=== PATIENT | male | born 1970 | race Caucasian/White ===

== ENCOUNTER 2016-09-03 14:55 | Emergency (ER) | payer SELFPAY ==
[~2016-09-03 14:55] MED LIST: CEPHALEXIN 500 MG CAP PO SCH; SULFAMETHOX/TMP 800/160 MG 1 TAB PO SCH
--- NOTE | 2016-09-03 16:33 | EDPHY ---
H & P Stated Complaint: infection to right thigh and left potter - 1 week Time Seen by Provider: 09/03/16 15:49 HPI/ROS: CHIEF COMPLAINT: multiple wounds HISTORY OF PRESENT ILLNESS: 46-year-old male presents emergency department reporting multiple wounds that he noticed on bilateral legs 2 weeks ago that have been increasing and worsening. Patient reports there is 1 on his left lower leg and 1 in his upper right lateral thigh that are becoming red and painful. Patient is homeless. He denies history of MRSA infection. He denies history of diabetes. Patient denies fevers or chills, no nausea. Tetanus is not up-to-date. He denies numbness or tingling in his extremities, no other complaints. REVIEW OF SYSTEMS: A comprehensive 10 point review of systems is otherwise negative aside from elements mentioned in the history of present illness. Source: Patient Exam Limitations: No limitations - Personal History Current Tetanus Diphtheria and Acellular Pertussis (TDAP): Unsure - Medical/Surgical History Hx Asthma: No Hx Chronic Respiratory Disease: No Hx Diabetes: No Hx Cardiac Disease: No Hx Renal Disease: No Hx Cirrhosis: No Hx Alcoholism: No Hx HIV/AIDS: No Hx Splenectomy or Spleen Trauma: No Other PMH: PMH: Glaucoma, Mental health issues. - Social History Smoking Status: Current some day smoker Drug Use: Marijuana - Physical Exam Exam: Physical Exam Gen: Alert and Oriented, NAD HEENT: PERRL, moist mucous membranes NECK: no meningismus CV: regular rate and regular rhythm PULM: CTAB, no wheezes NEURO: Neurologically grossly intact EXTREMITIES: normal appearing SKIN: Bilateral legs multiple small pustules. Left lateral potter with 2 cm x 2 cm area of erythema, induration and fluctuance with surrounding erythema and tenderness, right upper lateral thigh with 3 cm x 3 cm area of erythema, induration, fluctuance with surrounding erythema and tenderness. PSYCH: answers questions appropriately. Constitutional: Initial Vital Signs Temperature (C) 37.1 C 09/03/16 15:04 Heart Rate 104 H 09/03/16 15:04 Respiratory Rate 18 09/03/16 15:04 Blood Pressure 132/94 H 09/03/16 15:04 O2 Sat (%) 96 09/03/16 15:04 O2 Delivery Mode Room Air Allergies/Adverse Reactions: No Known Allergies Allergy (Unverified 05/10/13 21:48) Home Medications: Medication Instructions Recorded Cephalexin [Keflex] 500 mg PO QID 7 Days 09/03/16 Sulfamethox/Tmp 800/160 mg 1 tab PO BID #14 tab 09/03/16 [Bactrim Ds] Medical Decision Making Procedures: Procedure: Incision and Drainage abscess. The patient's abscess was located on the left lower leg. Risks, benefits, alternatives discussed with the patient and consent obtained. The area was prepped and draped in sterile fashion. The patient received local anesthesia with 1% lidocaine with epinephrine. The abscess was incised with a #11 blade and purulent drainage was expressed. The patient tolerated the procedure well. The procedure was performed by myself. Procedure: Incision and Drainage abscess. The patient's abscess was located on the right upper leg. Risks, benefits, alternatives discussed with the patient and consent obtained. The area was prepped and draped in sterile fashion. The patient received local anesthesia with 1% lidocaine with epinephrine. The abscess was incised with a #11 blade and purulent drainage was expressed. The patient tolerated the procedure well. The procedure was performed by myself. ED Course/Re-evaluation: Patient with multiple wounds to bilateral legs likely a MRSA infection. I performed an incision and drainage on left lower leg and right upper thigh, patient has been instructed on wound care. He is discharged with prescriptions for Keflex and Bactrim. These were dispensed to him through the pharmacy as he is homeless and reports does not have money to pay for these. Patient is given strict return precautions for any worsening symptoms. Differential Diagnosis: Diagnosis considered but not limited to abscess, cellulitis, necrotizing fasciitis, MRSA. Departure - Departure Disposition: Home, Routine, Self-Care Clinical Impression: Abscess Cellulitis Qualifiers: Site of cellulitis: extremity Site of cellulitis of extremity: lower extremity Laterality: unspecified laterality Qualified Code(s): L03.119 - Cellulitis of unspecified part of limb Condition: Good Instructions: MRSA (Methicillin-Resistant Staphylococcus Aureus) (ED) Additional Instructions: Take your antibiotics as prescribed. Warm compresses 5 times a day for 10 minutes. Take 600 mg of ibuprofen every 8 hours with food as needed for pain. Return to the emergency department for worsening symptoms, increased redness, fevers, new symptoms or concerns. Referrals: [facility] [Outside] - As per Instructions Prescriptions: Cephalexin [Keflex] 500 mg PO QID 7 Days Sulfamethox/Tmp 800/160 mg [Bactrim Ds] 1 tab PO BID #14 tab
[2016-09-03] MEDS ORDERED: TDAP ADULT 0.5 ML INJ (BOOSTRIX) IM ONE (16:35)
[2016-09-03] MEDS ORDERED: IBUPROFEN 600 MG TAB PO ONE (16:40)
[2016-09-03 17:13] VITALS: BP 143/74; PULSE 79; RESP 16; TEMP 98.6; O2SAT 95
== END 2016-09-03 17:13 | disposition home or self-care (01) ==
DX: L02.416 Cutaneous abscess of left lower limb (principal); L02.415 Cutaneous abscess of right lower limb; L03.115 Cellulitis of right lower limb; L03.116 Cellulitis of left lower limb; F17.200 Nicotine dependence, unspecified, uncomplicated; Z23 Encounter for immunization

== ENCOUNTER 2018-07-23 14:07 | Emergency (ER) | payer OTHER ==
[2018-07-23 14:14] VITALS: BP 129/53
--- NOTE | 2018-07-23 14:31 | EDPHY ---
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 He said he started getting blurry vision and a little bit of retro-orbital pain in left eye starting 4 days ago. He says it is blurry and worse than usual. REVIEW OF SYSTEMS: No eye pain, no discharge, no eye trauma. PAST MEDICAL HISTORY: Glaucoma as above and schizoaffective disorder Social history: Homeless General Appearance: Alert, no distress. Visual acuity: noted from nursing notes. Can only see light or motion in the right eye which is baseline for the past 2 years per the patient, 20/70 in the left. Lids and Lashes: No edema, no stye, no erythema. Conjunctivae: Not injected, no exudate. Sclera: No subconjunctival hemorrhage, no icterus. Pupils: Equal and round, normally reactive. Corneas: No foreign body on surface of cornea. Anterior chamber: Left eye is normal, no hyphema or hypopyon. External: No proptosis, no periorbital swelling or redness or tenderness. EOMI. Emergency Department course/MDM: [facility] pressures are 55, 59 and 60 in the left eye. Ophthalmology consultation by phone; Dr. Hirsch at [phone]. Requested I send the patient to his office now for further evaluation. Patient is agreeable. Smoking Status: Current some day smoker Constitutional: Initial Vital Signs Temperature (C) 36.6 C 07/23/18 14:12 Heart Rate 70 07/23/18 14:12 Respiratory Rate 16 07/23/18 14:12 Blood Pressure 129/53 H 07/23/18 14:12 O2 Sat (%) 91 L 07/23/18 14:12 O2 Delivery Mode Room Air Allergies/Adverse Reactions: No Known Allergies Allergy (Unverified 05/10/13 21:48) Home Medications: Medication Instructions Recorded NK [No Known Home Meds] 07/23/18 MDM/Departure - Depart Disposition: Home, Routine, Self-Care Clinical Impression: Vision loss of left eye Condition: Good Instructions: Blurred Vision (ED) Referrals: [facility],. [Clinic] - As per Instructions Emile Hirsch MD [Medical Doctor] - As per Instructions (to office now.)
== END 2018-07-23 14:51 | disposition home or self-care (01) ==
DX: H53.8 Other visual disturbances (principal); H40.131 Pigmentary glaucoma, right eye